=== PATIENT | male | born 1980 | race Caucasian/White ===

== ENCOUNTER 2017-04-14 16:03 | Inpatient (IN) | payer OTHER ==
[2017-04-14 17:22] VITALS: BMI 26.4
[2017-04-14] MEDS ORDERED: MAGNESIUM CITRATE 300 ML BOTTLE PO PRN (17:49)
[2017-04-14] MEDS ORDERED: LOPERAMIDE HCL 2 MG CAPSULE PO PRN (17:49)
[2017-04-14] MEDS ORDERED: P-EPHED 60MG/TRIPROLIDI 2.5MG TABLET PO PRN (17:49)
[2017-04-14] MEDS ORDERED: MENTHOL/PHENOL 1 EACH UD MM PRN (17:49)
[2017-04-14] MEDS ORDERED: guaiFENesin/D-METHORPHAN HB 10 ML UNIT-DOSE CUPS PO PRN (17:49)
[2017-04-14] MEDS ORDERED: NICOTINE POLACRILEX 2 MG GUM BC PRN (17:49)
[2017-04-14] MEDS ORDERED: NICOTINE POLACRILEX 4 MG GUM BC PRN (17:49)
[2017-04-14] MEDS ORDERED: ACETAMINOPHEN 325 MG TABLET (FP) PO PRN (17:49)
[2017-04-14] MEDS ORDERED: chlordiazePOXIDE HCL 25 MG CAPSULE PO PRN (17:49)
[2017-04-14] MEDS ORDERED: chlordiazePOXIDE HCL 25 MG CAPSULE PO ONE (17:49)
[2017-04-14] MEDS ORDERED: diphenhydrAMINE HCL 50 MG CAPSULE PO PRN (17:49)
[2017-04-14] MEDS ORDERED: METHADONE HCL 10 MG TABLET (FOR DETOX USE ONLY) PO ONE ×2 (17:49→23:00)
[2017-04-14] MEDS ORDERED: MAG HYDROX/AL HYDROX/SIMETH 30 ML UNIT-DOSE CUP PO PRN (17:49)
[2017-04-14] MEDS ORDERED: IBUPROFEN 400 MG TABLET (FP) PO PRN (17:49)
[2017-04-14] MEDS ORDERED: MAGNESIUM HYDROX 2400MG/30ML ORAL SUSPENSION 30 ML CUP PO PRN (17:49)
--- NOTE | 2017-04-14 17:49 | HP ---
COWS - Scale Resting Pulse: 2= [place] 101-120 Sweatin= Chills/Flushing Restless Observation: 1= Difficult to Sit Still Pupil Size: 1= Pupils >than Normal Bone or Joint Aches: 2= Severe Diffuse Aches Runny Nose/ Eye Tearin= Runny Nose/Eyes GI Upset > 30mins: 2= Nausea/Diarrhea Tremor Observation: 2= Slight Tremor Visible Yawning Observation: 1= 1-2x During Session Anxiety or Irritability: 2=Irritable/Anxious Goose Flesh Skin: 3=Piloerection COWS Score: 19 CIWA Score - CIWA Score Nausea/Vomitin-Int. Nausea w/Dry Heave Muscle Tremors: 4-Moderate,w/Arms Extend Anxiety: 4-Mod. Anxious/Guarded Agitation: 4-Moderately Restless Paroxysmal Sweats: 3 Orientation: 0-Oriented Tacttile Disturbances: 0-None Auditory Disturbances: 0-None Visual Disturbances: 0-None Headache: 3-Moderate CIWA-Ar Total Score: 22 Admission ROS BHS - HPI Chief Complaint: alcohol and heroin withdrawal sx, requesting inpateint detox Allergies/Adverse Reactions: Allergies Allergy/AdvReac Type Severity Reaction Status Date / Time Fish Containing Products Allergy Severe Swelling Verified 04/14/17 17:39 History of Present Illness: 36 yo m with h/o chronic alcoholism and opioid dependence, was admitted to [facility] 2007, last detox in [place] 1 year ago now requesting inpatient detox and rehab from alcohol and hoerin because of KIM and heorin withdrawl symptoms. PMHX Hep c+, depressopm, nicotine dependence <10/day no suicidal ideation or suicide attempts in the past. no h/o seizures, no DTs. h/o OD, h/o IDU - now sniffing only last used yesterday. Last drink yesterday. Exam Limitations: No Limitations - Ebola screening Have you traveled outside of the country in the last 21 days: No Have you had contact with anyone from an Ebola affected area: No Have you been sick,other than usual withdrawal symptoms: No Do you have a fever: No - Review of Systems Constitutional: Chills, Diaphoresis, Malaise, Night Sweats, Weakness, Unintentional Wgt. Loss EENT: reports: Nose Congestion Respiratory: reports: SOB with Exertion Cardiac: reports: No Symptoms Reported GI: reports: Constipated, Nausea, Poor Appetite, Poor Fluid Intake, Vomiting, Indigestion, Abdominal cramping : reports: No Symptoms Reported Musculoskeletal: reports: Back Pain, Joint Pain, Muscle Pain, Muscle Weakness, Neck Pain Integumentary: reports: Flushing, Sweating Neuro: reports: Headache, Numbness, Tremors, Weakness Endocrine: reports: No Symptoms Reported Hematology: reports: No Symptoms Reported Psychiatric: reports: Judgement Intact, Mood/Affect Appropiate, Orientated x3, Agitated, Anxious, Depressed Other Systems: Reviewed and Negative Patient History - Patient Medical History Hx Anemia: No Hx Asthma: No Hx Chronic Obstructive Pulmonary Disease (COPD): No Hx Cancer: No Hx Cardiac Disorders: No Hx Congestive Heart Failure: No Hx Hypertension: No Hx Hypercholesterolemia: Yes (not on medication) Hx Pacemaker: No HX Cerebrovascular Accident: No Hx Seizures: No Hx Diabetes: No Hx Gastrointestinal Disorders: No Hx Liver Disease: No Hx Genitourinary Disorders: No Hx Sexually Transmitted Disorders: No Hx Renal Disease (ESRD): No Hx Thyroid Disease: No Hx Human Immunodeficiency Virus (HIV): No Hx Hepatitis C: No Hx Depression: Yes Hx Suicide Attempt: No Hx Bipolar Disorder: No Hx Schizophrenia: No - Patient Surgical History Past Surgical History: Yes Hx Abdominal Surgery: Yes (liver biopsy) Anesthesia Reaction: No - PPD History Previous Implant?: Yes Documented Results: Negative w/o proof Implanted On Prior R Admission?: No PPD to be Administered?: Yes - Reproductive History Patient is a Female of Child Bearing Age (11 -55 yrs old): No Patient : No - Smoking Cessation Smoking history: Current every day smoker Have you smoked in the past 12 months: Yes Aproximately how many cigarettes per day: 6 Hx Chewing Tobacco Use: No Initiated information on smoking cessation: Yes 'Breaking Loose' booklet given: 04/14/17 - Substance & Tx. History Hx Alcohol Use: Yes Hx Substance Use: Yes Substance Use Type: Alcohol, Cocaine Hx Substance Use Treatment: Yes - Substances Abused Heroin Route: Inhalation Frequency: Daily Amount used: 2 bags Age of first use: 27 Date of Last Use: 04/13/17 Crack Route: Smoking Frequency: Daily Amount used: 4-5 bags Age of first use: 27 Date of Last Use: 04/13/17 Alcohol Route: Oral Frequency: Daily Amount used: 3-4 40 oz beers Age of first use: 12 Date of Last Use: 04/13/17 Alprazolam (Xanax) Route: Oral Frequency: 1-2 times per week Amount used: 4mg Age of first use: 31 Date of Last Use: 04/12/17 percocets Route: Oral Frequency: 3-6 times per week Amount used: 2-3 10mg pills Age of first use: 35 Date of Last Use: 04/11/17 Family Disease History - Family Disease History Family Disease History: Other: Father (alcoholism) Admission Physical Exam [facility] - Vital Signs Vital Signs: Vital Signs - 24 hr 04/14/17 17:20 Temperature 97.3 F L Pulse Rate 104 H Respiratory 20 Rate Blood Pressure 112/69 - Physical General Appearance: Yes: Nourished, Appropriately Dressed, Mild Distress, Thin, Tremorous, Irritable, Sweating, Anxious HEENTM: Yes: EOMI, Hearing grossly Normal, Normal ENT Inspection, Normocephalic , Normal Voice, COLIN, Pharynx Normal, Nasal Congestion, Rhinorrhea Respiratory: Yes: Within Normal Limits, Chest Non-Tender, Lungs Clear, Normal Breath Sounds, No Respiratory Distress, No Accessory Muscle Use Neck: Yes: Within Normal Limits, No masses,lesions,Nodules, Supple, Trachea in good position Breast: Yes: Breast Exam Deferred Cardiology: Yes: Within Normal Limits, Regular Rhythm, Regular Rate, S1, S2 Abdominal: Yes: Non Tender, Flat, Soft, Increased Bowel Sounds Genitourinary: Yes: Within Normal Limits Back: Yes: Normal Inspection, Muscle Spasm Musculoskeletal: Yes: full range of Motion, Gait Steady, Pelvis Stable, Back pain, Muscle Pain Extremities: Yes: Normal Capillary Refill, Normal Inspection, Normal Range of Motion, Non-Tender, Tremors, Other (old tracks both arms from injecting many years ago) Neurological: Yes: goggles assembler II-XII NML intact, Fully Oriented, Alert, Motor Strength 5/5, Normal Response, Depressed Affect Integumentary: Yes: Normal Color, Warm, Diaphoresis, Moist, Track Trevino (old, no longer injecting) Lymphatic: Yes: Within Normal Limits - Addiitonal Findings: withdrawal sx - Diagnostic (1) Opioid dependence with withdrawal Current Visit: Yes Status: Chronic (2) Alcohol dependence with uncomplicated withdrawal Current Visit: Yes Status: Chronic (3) Cocaine dependence, uncomplicated Current Visit: Yes Status: Chronic (4) Sedative, hypnotic or anxiolytic dependence with withdrawal, uncomplicated Current Visit: Yes Status: Chronic (5) Nicotine dependence Current Visit: Yes Status: Chronic Qualifiers: Nicotine product type: cigarettes (6) Hepatitis C Current Visit: Yes Status: Chronic (7) Depression Current Visit: Yes Status: Chronic Cleared for Admission S - Detox or Rehab [facility] Level of Care: Medically Managed Detox Regimen/Protocol: Methadone/Librium [facility] Breath Alcohol Content Breath Alcohol Content: 0 Urine Drug Screen - Results Drug Screen Negative: No Urine Drug Screen Results: JOSE ALBERTO-Cocaine, OPI-Opiates
[2017-04-14] MEDS ORDERED: ZOLPIDEM TARTRATE 10 MG TABLET (PARK CARE ONLY) PO PRN (17:52)
[2017-04-14] MEDS: NICOTINE 14 MG/24 HOURS TOPICAL PATCH TD SCH (19:51)
[2017-04-14] MEDS: THIAMINE HCL 100 MG TABLET (FP) PO SCH (22:01)
[2017-04-14] MEDS: chlordiazePOXIDE HCL 25 MG CAPSULE PO SCH (22:02)
[2017-04-14 22:24] LABS: URINE APPEARANCE CLEAR; URINE BILIRUBIN NEGATIVE (NEGATIVE); URINE BLOOD NEGATIVE (NEGATIVE); URINE COLOR YELLOW; URINE GLUCOSE (UA) NEGATIVE (NEGATIVE); URINE KETONE TRACE (NEGATIVE); URINE LEUK ESTERASE NEGATIVE (NEGATIVE); URINE NITRITE NEGATIVE (NEGATIVE); URINE PROTEIN NEGATIVE (NEGATIVE); URINE UROBILINOGEN NEGATIVE mg/dL (0.2-1.0)
[2017-04-15] MEDS: chlordiazePOXIDE HCL 25 MG CAPSULE PO SCH ×4 (05:23→22:08)
--- NOTE | 2017-04-15 08:51 | CONSULT ---
[facility] Psychiatric Consult - Data Date of interview: 04/15/17 Admission source: [facility] Identifying data: This is 36 years old nale with psychiatric hospitalization history, history of depression, iontosicated with: Alcohol, Cocaine, Opioids, Xanax amnd Nicotine Substance Abuse History: Smoking history: Current every day smoker. Have you smoked in the past 12 months: Yes. Aproximately how many cigarettes per day: 6. Hx Chewing Tobacco Use: No. Initiated information on smoking cessation: Yes. 'Breaking Loose' booklet given: 04/14/17. - Substance & Tx. History. Hx Alcohol Use: Yes. Hx Substance Use: Yes. Substance Use Type: Alcohol, Cocaine. Hx Substance Use Treatment: Yes. - Substances Abused. Heroin. Route: Inhalation. Frequency: Daily. Amount used: 2 bags. Age of first use: 27. Date of Last Use: 04/13/17. Crack. Route: Smoking. Frequency: Daily. Amount used: 4-5 bags. Age of first use: 27. Date of Last Use: 04/13/17. * * Alcohol. Route: Oral. Frequency: Daily. Amount used: 3-4 40 oz beers. Age of first use: 12. Date of Last Use: 04/13/17. Alprazolam (Xanax). Route: Oral. Frequency: 1-2 times per week. Amount used: 4mg. Age of first use: 31. Date of Last Use: 04/12/17. percocets. Route: Oral. Frequency: 3-6 times per week. Amount used: 2-3 10mg pills. Age of first use: 35. Date of Last Use: 04/11/17 Medical History: HepC+ Psychiatric History: Patioent reports history of depression with unclear psychiatric hospitalization on about more then 5 years ago, reports taking prior to admission: Abilify 10mg poqd. Ambien 10mg po qhs. Denies suicidal history Physical/Sexual Abuse/Trauma History: Denies Additional Comment: Abilify 10mg poqd. Ambien 10mg po qhs Psychiatric Findings - Problem List ([place] 1, 2,3) (1) Alcohol dependence with uncomplicated withdrawal Current Visit: Yes Status: Chronic (2) Cocaine dependence, uncomplicated Current Visit: Yes Status: Chronic (3) Nicotine dependence Current Visit: Yes Status: Chronic Qualifiers: Nicotine product type: cigarettes (4) Opioid dependence with withdrawal Current Visit: Yes Status: Chronic (5) Sedative, hypnotic or anxiolytic dependence with withdrawal, uncomplicated Current Visit: Yes Status: Chronic (6) Drug-induced mood disorder Current Visit: Yes Status: Acute - Initial Treatment Plan Initial Treatment Plan: Abilify 10mg poqd. Ambien 10mg po qhs
[2017-04-15 09:56] LABS: MCH 31.3 pg (25.7-33.7); MCHC 33.3 g/dl (32.0-35.9); MEAN PLT VOLUME 8.6 fl (7.5-11.1); PLATELET COUNT 202 K/MM3 (134-434); RDW 12.5 % (11.9-15.9); WHITE BLOOD COUNT 8.9 K/mm3 (4.0-10.0)
[2017-04-15] MEDS ORDERED: METHADONE HCL 10 MG TABLET (FOR DETOX USE ONLY) PO SCH (10:00)
[2017-04-15] MEDS: PRENATAL VITAMINS W/ FOLIC ACID TABLET (FP) PO SCH (10:07)
[2017-04-15] MEDS: ARIPiprazole 10 MG TABLET PO SCH (10:07)
[2017-04-15] MEDS: NICOTINE 14 MG/24 HOURS TOPICAL PATCH TD SCH (10:08)
--- NOTE | 2017-04-15 10:09 | PN ---
S CIWA - CIWA Score Nausea/Vomitin Muscle Tremors: 4-Moderate,w/Arms Extend Anxiety: 4-Mod. Anxious/Guarded Agitation: 4-Moderately Restless Paroxysmal Sweats: 3 Orientation: 0-Oriented Tacttile Disturbances: 0-None Auditory Disturbances: 0-None Visual Disturbances: 0-None Headache: 0-None Present CIWA-Ar Total Score: 18 BHS COWS - Scale Resting Pulse: 1= [place] 81-100 Sweatin= Chills/Flushing Restless Observation: 1= Difficult to Sit Still Pupil Size: 1= Pupils >than Normal Bone or Joint Aches: 1= Mild Discomfort Runny Nose/ Eye Tearin= Nasal Congestion GI Upset > 30mins: 2= Nausea/Diarrhea Tremor Observation of Outstretched Hands: 2= Slight Tremor Visible Yawning Observation: 1= 1-2x During Session Anxiety or Irritability: 2=Irritable/Anxious Goose Flesh Skin: 3=Piloerection COWS Score: 16 BHS Progress Note (SOAP) Subjective: nausea, sweats, interrupted sleep, anxiety, tremors Objective: 04/15/17 10:08 Vital Signs - 24 hr 04/14/17 04/14/17 04/15/17 17:20 21:17 00:30 Temperature 97.3 F L 98.8 F Pulse Rate 104 H 100 H Respiratory 20 20 18 Rate Blood Pressure 112/69 127/71 04/15/17 04/15/17 03:30 05:53 Temperature 97.2 F L Pulse Rate 75 Respiratory 18 16 Rate Blood Pressure 92/58 Laboratory Tests 04/14/17 04/15/17 21:57 07:00 WBC 8.9 RBC 4.42 Hgb 13.8 Hct 41.6 MCV 94.0 MCH 31.3 MCHC 33.3 RDW 12.5 Plt Count 202 MPV 8.6 Urine Color Yellow Urine Appearance Clear Urine pH 6.0 Ur Specific [place] 1.025 Urine Protein Negative Urine Glucose (UA) Negative Urine Ketones Trace H Urine Blood Negative Urine Nitrite Negative Urine Bilirubin Negative Urine Urobilinogen Negative Ur Leukocyte Esterase Negative labs pending Assessment: 04/15/17 10:08 withdrawal sx Plan: cont detox, fluids, check labs
--- NOTE | 2017-04-15 10:45 | EKG ---
Test Reason : Blood Pressure : / mmHG Vent. Rate : 087 BPM Atrial Rate : 087 BPM P-R Int : 148 ms QRS Dur : 094 ms QT Int : 356 ms P-R-T Axes : 028 051 027 degrees QTc Int : 428 ms NORMAL SINUS RHYTHM NORMAL ECG NO PREVIOUS ECGS AVAILABLE Confirmed by BREN DISLA, LUCILA ([id number]) on 04/15/2017 10:45:00 AM Referred By: Bereket Graves Confirmed By:LUCILA CORREIA MD
[2017-04-15 10:46] LABS: ALBUMIN 3.3 g/dl (3.4-5.0); ANION GAP 8 (8-16); CALCIUM 8.7 mg/dL (8.5-10.1); CO2 30 mmol/L (21-32); GLUCOSE,RANDOM 149 mg/dL (74-106)
[2017-04-15 10:50] LABS: ALK PHOS 96 U/L (45-117); BILIRUBIN,TOTAL 0.4 mg/dL (0.2-1.0); CREATININE 1.1 mg/dL (0.7-1.3); SGOT/AST 6 U/L (15-37); SGPT/ALT 15 U/L (12-78); TOT PROT 5.9 g/dl (6.4-8.2)
[2017-04-15 14:37] LABS: SICKLE CELL SCREEN NEGATIVE (NEGATIVE)
[2017-04-15] MEDS: CYCLOBENZAPRINE HCL 10 MG TABLET (FP) PO SCH ×2 (15:10→22:07)
[2017-04-15] MEDS ORDERED: ONDANSETRON *ODT* 4 MG TABLET SL ONE (17:45)
[2017-04-15] MEDS: THIAMINE HCL 100 MG TABLET (FP) PO SCH (22:06)
[2017-04-15] MEDS: cloNIDine HCL 0.1 MG TABLET PO SCH (22:07)
[2017-04-15] MEDS: ZOLPIDEM TARTRATE 10 MG TABLET (PARK CARE ONLY) PO PRN (22:07)
[2017-04-15] MEDS: NAPROXEN 500 MG TABLET (FP) PO SCH (22:07)
[2017-04-16] MEDS: chlordiazePOXIDE HCL 25 MG CAPSULE PO SCH ×3 (05:39→17:49)
[2017-04-16] MEDS: CYCLOBENZAPRINE HCL 10 MG TABLET (FP) PO SCH ×3 (05:39→22:10)
[2017-04-16] MEDS ORDERED: TRIMETHOBENZAMIDE HCL 300 MG CAPSULE PO PRN (09:56)
[2017-04-16] MEDS ORDERED: TRIMETHOBENZAMIDE HCL 300 MG CAPSULE PO ONE (10:15)
[2017-04-16] MEDS: NAPROXEN 500 MG TABLET (FP) PO SCH ×2 (10:57→22:11)
[2017-04-16] MEDS: cloNIDine HCL 0.1 MG TABLET PO SCH ×2 (10:57→22:11)
[2017-04-16] MEDS: PANTOPRAZOLE 40 MG TABLET (FP) PO SCH (10:57)
[2017-04-16] MEDS: PRENATAL VITAMINS W/ FOLIC ACID TABLET (FP) PO SCH (10:57)
[2017-04-16] MEDS: METHADONE HCL 5 MG TABLET (FOR DETOX USE ONLY) PO SCH (10:58)
[2017-04-16] MEDS: ARIPiprazole 10 MG TABLET PO SCH (10:58)
[2017-04-16] MEDS: NICOTINE 14 MG/24 HOURS TOPICAL PATCH TD SCH (11:47)
[2017-04-16] MEDS: hydrOXYzine PAMOATE 50 MG CAPSULE (FP) PO PRN (11:48)
--- NOTE | 2017-04-16 13:01 | PN ---
[facility] CIWA - CIWA Score Nausea/Vomitin-No Nausea/No Vomiting Muscle Tremors: 4-Moderate,w/Arms Extend Anxiety: 4-Mod. Anxious/Guarded Agitation: 4-Moderately Restless Paroxysmal Sweats: 3 Orientation: 0-Oriented Tacttile Disturbances: 0-None Auditory Disturbances: 0-None Visual Disturbances: 0-None Headache: 0-None Present CIWA-Ar Total Score: 15 BHS COWS - Scale Resting Pulse: 1= [place] 81-100 Sweatin=Flushed/Facial Moisture Restless Observation: 1= Difficult to Sit Still Pupil Size: 0= Normal to Room Light Bone or Joint Aches: 2= Severe Diffuse Aches Runny Nose/ Eye Tearin= Runny Nose/Eyes GI Upset > 30mins: 1= Stomach Cramp Tremor Observation of Outstretched Hands: 2= Slight Tremor Visible Yawning Observation: 1= 1-2x During Session Anxiety or Irritability: 2=Irritable/Anxious Goose Flesh Skin: 0=Smooth Skin COWS Score: 14 S Progress Note (SOAP) Subjective: irritable agitation anxiety sweats interrupted sleep headache Objective: 04/16/17 13:00 Vital Signs Temperature 98.1 F 04/16/17 10:04 Pulse Rate 84 04/16/17 10:04 Respiratory Rate 16 04/16/17 10:04 Blood Pressure 113/69 04/16/17 10:04 O2 Sat by Pulse Oximetry (%) Laboratory Tests 04/14/17 04/15/17 04/15/17 21:57 07:00 07:00 WBC 8.9 RBC 4.42 Hgb 13.8 Hct 41.6 MCV 94.0 MCH 31.3 MCHC 33.3 RDW 12.5 Plt Count 202 MPV 8.6 Sickle Cell Screen Negative Sodium 141 Potassium 4.0 Chloride 103 Carbon Dioxide 30 Anion Gap 8 BUN 11 Creatinine 1.1 Creat Clearance w eGFR > 60 Random Glucose 149 H Calcium 8.7 Total Bilirubin 0.4 AST 6 L ALT 15 Alkaline Phosphatase 96 Total Protein 5.9 L Albumin 3.3 L Urine Color Yellow Urine Appearance Clear Urine pH 6.0 Ur Specific [place] 1.025 Urine Protein Negative Urine Glucose (UA) Negative Urine Ketones Trace H Urine Blood Negative Urine Nitrite Negative Urine Bilirubin Negative Urine Urobilinogen Negative Ur Leukocyte Esterase Negative RPR Titer 04/15/17 07:00 WBC RBC Hgb Hct MCV MCH MCHC RDW Plt Count MPV Sickle Cell Screen Sodium Potassium Chloride Carbon Dioxide Anion Gap BUN Creatinine Creat Clearance w eGFR Random Glucose Calcium Total Bilirubin AST ALT Alkaline Phosphatase Total Protein Albumin Urine Color Urine Appearance Urine pH Ur Specific [place] Urine Protein Urine Glucose (UA) Urine Ketones Urine Blood Urine Nitrite Urine Bilirubin Urine Urobilinogen Ur Leukocyte Esterase RPR Titer Nonreactive awake/alert ambulating no acute distress Assessment: 04/16/17 13:01 withdrawal sx Plan: continue detox increase fluids
[2017-04-16] MEDS: THIAMINE HCL 100 MG TABLET (FP) PO SCH (22:11)
[2017-04-16] MEDS: chlordiazePOXIDE 5 MG CAPSULE PO SCH (22:11)
[2017-04-16] MEDS: ZOLPIDEM TARTRATE 10 MG TABLET (PARK CARE ONLY) PO PRN (23:13)
[2017-04-17] MEDS: chlordiazePOXIDE 5 MG CAPSULE PO SCH ×3 (05:35→18:20)
[2017-04-17] MEDS: CYCLOBENZAPRINE HCL 10 MG TABLET (FP) PO SCH ×3 (07:19→21:59)
[2017-04-17] MEDS: PANTOPRAZOLE 40 MG TABLET (FP) PO SCH (10:19)
[2017-04-17] MEDS: PRENATAL VITAMINS W/ FOLIC ACID TABLET (FP) PO SCH (10:20)
[2017-04-17] MEDS: cloNIDine HCL 0.1 MG TABLET PO SCH ×2 (10:20→21:59)
[2017-04-17] MEDS: hydrOXYzine PAMOATE 50 MG CAPSULE (FP) PO PRN (10:20)
[2017-04-17] MEDS: METHADONE HCL 5 MG TABLET (FOR DETOX USE ONLY) PO SCH (10:20)
[2017-04-17] MEDS: NAPROXEN 500 MG TABLET (FP) PO SCH ×2 (10:20→21:59)
[2017-04-17] MEDS: ARIPiprazole 10 MG TABLET PO SCH (10:20)
[2017-04-17] MEDS: NICOTINE 14 MG/24 HOURS TOPICAL PATCH TD SCH (10:21)
--- NOTE | 2017-04-17 10:42 | PN ---
S Progress Note (SOAP) Subjective: ALERT,IRRITABLE,ANXIOUS,INTERRUPTED SLEEP,PAIN IN THE BODY Objective: 04/17/17 10:41 Vital Signs Temperature 98.1 F 04/17/17 10:00 Pulse Rate 86 04/17/17 10:00 Respiratory Rate 18 04/17/17 10:00 Blood Pressure 125/68 04/17/17 10:00 O2 Sat by Pulse Oximetry (%) Assessment: 04/17/17 10:42 WITHDRAWAL SYMPTOM Plan: CONTINUE DETOX,
[2017-04-17] MEDS: ZOLPIDEM TARTRATE 10 MG TABLET (PARK CARE ONLY) PO PRN (21:59)
[2017-04-17] MEDS: THIAMINE HCL 100 MG TABLET (FP) PO SCH (21:59)
[2017-04-17] MEDS: chlordiazePOXIDE HCL 10 MG CAPSULE PO SCH (21:59)
[2017-04-18] MEDS: CYCLOBENZAPRINE HCL 10 MG TABLET (FP) PO SCH ×3 (05:35→23:07)
[2017-04-18] MEDS: chlordiazePOXIDE HCL 10 MG CAPSULE PO SCH ×3 (05:35→18:19)
[2017-04-18] MEDS ORDERED: METHADONE HCL 10 MG TABLET (FOR DETOX USE ONLY) PO SCH (10:00)
[2017-04-18] MEDS: cloNIDine HCL 0.1 MG TABLET PO SCH ×2 (10:47→23:07)
[2017-04-18] MEDS: PRENATAL VITAMINS W/ FOLIC ACID TABLET (FP) PO SCH (10:47)
[2017-04-18] MEDS: NAPROXEN 500 MG TABLET (FP) PO SCH ×2 (10:47→23:07)
[2017-04-18] MEDS: NICOTINE 14 MG/24 HOURS TOPICAL PATCH TD SCH (10:47)
[2017-04-18] MEDS: PANTOPRAZOLE 40 MG TABLET (FP) PO SCH (10:47)
[2017-04-18] MEDS: ARIPiprazole 10 MG TABLET PO SCH (10:48)
--- NOTE | 2017-04-18 11:31 | PN ---
S Progress Note (SOAP) Subjective: shakes, sweats,diarrhea, back pain Objective: 04/18/17 11:31 Vital Signs - 8 hr 04/18/17 04/18/17 06:43 10:00 Temperature 97.9 F 98.1 F Pulse Rate 70 73 Respiratory 18 18 Rate Blood Pressure 112/66 109/70 Laboratory Last Values WBC 8.9 K/mm3 (4.0-10.0) 04/15/17 07:00 RBC 4.42 M/mm3 (4.00-5.60) 04/15/17 07:00 Hgb 13.8 GM/dL (11.7-16.9) 04/15/17 07:00 Hct 41.6 % (35.4-49) 04/15/17 07:00 MCV 94.0 fl (80-96) 04/15/17 07:00 MCH 31.3 pg (25.7-33.7) 04/15/17 07:00 MCHC 33.3 g/dl (32.0-35.9) 04/15/17 07:00 RDW 12.5 % (11.9-15.9) 04/15/17 07:00 Plt Count 202 K/MM3 (134-434) 04/15/17 07:00 MPV 8.6 fl (7.5-11.1) 04/15/17 07:00 Sickle Cell Screen Negative (NEGATIVE) 04/15/17 07:00 Sodium 141 mmol/L (136-145) 04/15/17 07:00 Potassium 4.0 mmol/L (3.5-5.1) 04/15/17 07:00 Chloride 103 mmol/L (98-107) 04/15/17 07:00 Carbon Dioxide 30 mmol/L (21-32) 04/15/17 07:00 Anion Gap 8 (8-16) 04/15/17 07:00 BUN 11 mg/dL (7-18) 04/15/17 07:00 Creatinine 1.1 mg/dL (0.7-1.3) 04/15/17 07:00 Creat Clearance w eGFR > 60 (>60) 04/15/17 07:00 Random Glucose 149 mg/dL (74-106) H 04/15/17 07:00 Calcium 8.7 mg/dL (8.5-10.1) 04/15/17 07:00 Total Bilirubin 0.4 mg/dL (0.2-1.0) 04/15/17 07:00 AST 6 U/L (15-37) L 04/15/17 07:00 ALT 15 U/L (12-78) 04/15/17 07:00 Alkaline Phosphatase 96 U/L (45-117) 04/15/17 07:00 Total Protein 5.9 g/dl (6.4-8.2) L 04/15/17 07:00 Albumin 3.3 g/dl (3.4-5.0) L 04/15/17 07:00 Urine Color Yellow 04/14/17 21:57 Urine Appearance Clear 04/14/17 21:57 Urine pH 6.0 (5.0-8.0) 04/14/17 21:57 Ur Specific [place] 1.025 (1.005-1.025) 04/14/17 21:57 Urine Protein Negative (NEGATIVE) 04/14/17 21:57 Urine Glucose (UA) Negative (NEGATIVE) 04/14/17 21:57 Urine Ketones Trace (NEGATIVE) H 04/14/17 21:57 Urine Blood Negative (NEGATIVE) 04/14/17 21:57 Urine Nitrite Negative (NEGATIVE) 04/14/17 21:57 Urine Bilirubin Negative (NEGATIVE) 04/14/17 21:57 Urine Urobilinogen Negative mg/dL (0.2-1.0) 04/14/17 21:57 Ur Leukocyte Esterase Negative (NEGATIVE) 04/14/17 21:57 RPR Titer Nonreactive (NONREACTIVE) 04/15/17 07:00 labs noted Assessment: 04/18/17 11:31 withdrawal sx Plan: continue detox
[2017-04-18] MEDS: THIAMINE HCL 100 MG TABLET (FP) PO SCH (23:13)
[2017-04-19] MEDS ORDERED: METHADONE HCL 5 MG TABLET (FOR DETOX USE ONLY) PO SCH (06:00)
[2017-04-19] MEDS: CYCLOBENZAPRINE HCL 10 MG TABLET (FP) PO SCH (06:18)
--- NOTE | 2017-04-19 10:09 | PN ---
[facility] Progress Note Note: Pt. completed detox and was schedule to go home. However he became psychotic with auditory hallucinations, he accuses staff of trying to hurt him. Vital Signs - 8 hr 04/19/17 04/19/17 03:30 06:35 Temperature 97.4 F L Pulse Rate 86 Respiratory 18 16 Rate Blood Pressure 102/52 Laboratory Last Values WBC 8.9 K/mm3 (4.0-10.0) 04/15/17 07:00 RBC 4.42 M/mm3 (4.00-5.60) 04/15/17 07:00 Hgb 13.8 GM/dL (11.7-16.9) 04/15/17 07:00 Hct 41.6 % (35.4-49) 04/15/17 07:00 MCV 94.0 fl (80-96) 04/15/17 07:00 MCH 31.3 pg (25.7-33.7) 04/15/17 07:00 MCHC 33.3 g/dl (32.0-35.9) 04/15/17 07:00 RDW 12.5 % (11.9-15.9) 04/15/17 07:00 Plt Count 202 K/MM3 (134-434) 04/15/17 07:00 MPV 8.6 fl (7.5-11.1) 04/15/17 07:00 Sickle Cell Screen Negative (NEGATIVE) 04/15/17 07:00 Sodium 141 mmol/L (136-145) 04/15/17 07:00 Potassium 4.0 mmol/L (3.5-5.1) 04/15/17 07:00 Chloride 103 mmol/L (98-107) 04/15/17 07:00 Carbon Dioxide 30 mmol/L (21-32) 04/15/17 07:00 Anion Gap 8 (8-16) 04/15/17 07:00 BUN 11 mg/dL (7-18) 04/15/17 07:00 Creatinine 1.1 mg/dL (0.7-1.3) 04/15/17 07:00 Creat Clearance w eGFR > 60 (>60) 04/15/17 07:00 Random Glucose 149 mg/dL (74-106) H 04/15/17 07:00 Calcium 8.7 mg/dL (8.5-10.1) 04/15/17 07:00 Total Bilirubin 0.4 mg/dL (0.2-1.0) 04/15/17 07:00 AST 6 U/L (15-37) L 04/15/17 07:00 ALT 15 U/L (12-78) 04/15/17 07:00 Alkaline Phosphatase 96 U/L (45-117) 04/15/17 07:00 Ammonia 32.44 umol/L (11-32) H 04/18/17 15:00 Total Protein 5.9 g/dl (6.4-8.2) L 04/15/17 07:00 Albumin 3.3 g/dl (3.4-5.0) L 04/15/17 07:00 Urine Color Yellow 04/14/17 21:57 Urine Appearance Clear 04/14/17 21:57 Urine pH 6.0 (5.0-8.0) 04/14/17 21:57 Ur Specific [place] 1.025 (1.005-1.025) 04/14/17 21:57 Urine Protein Negative (NEGATIVE) 04/14/17 21:57 Urine Glucose (UA) Negative (NEGATIVE) 04/14/17 21:57 Urine Ketones Trace (NEGATIVE) H 04/14/17 21:57 Urine Blood Negative (NEGATIVE) 04/14/17 21:57 Urine Nitrite Negative (NEGATIVE) 04/14/17 21:57 Urine Bilirubin Negative (NEGATIVE) 04/14/17 21:57 Urine Urobilinogen Negative mg/dL (0.2-1.0) 04/14/17 21:57 Ur Leukocyte Esterase Negative (NEGATIVE) 04/14/17 21:57 RPR Titer Nonreactive (NONREACTIVE) 04/15/17 07:00 Ammonia level upper limit of normal. Dx. : Acute Psychosis P : Call 911 for safe transfer to [facility]
[2017-04-19 10:38] VITALS: BP 119/69; PULSE 87; TEMP 98.1
--- NOTE | 2017-04-19 12:24 | DS ---
[facility] Detox Discharge Summary Admission Date: 04/14/17 Discharge Date: 04/19/17 - History Present History: Alcohol Dependence, Cocaine Dependence, Opioid Dependence, Sedative Dependence Pertinent Past History: Hep C - Physical Exam Results Vital Signs: Vital Signs Temperature 98.1 F 04/19/17 10:00 Pulse Rate 87 04/19/17 10:00 Respiratory Rate 18 04/19/17 10:00 Blood Pressure 119/69 04/19/17 10:00 O2 Sat by Pulse Oximetry (%) Pertinent Admission Physical Exam Findings: Withdrawal sx. Laboratory Last Values WBC 8.9 K/mm3 (4.0-10.0) 04/15/17 07:00 RBC 4.42 M/mm3 (4.00-5.60) 04/15/17 07:00 Hgb 13.8 GM/dL (11.7-16.9) 04/15/17 07:00 Hct 41.6 % (35.4-49) 04/15/17 07:00 MCV 94.0 fl (80-96) 04/15/17 07:00 MCH 31.3 pg (25.7-33.7) 04/15/17 07:00 MCHC 33.3 g/dl (32.0-35.9) 04/15/17 07:00 RDW 12.5 % (11.9-15.9) 04/15/17 07:00 Plt Count 202 K/MM3 (134-434) 04/15/17 07:00 MPV 8.6 fl (7.5-11.1) 04/15/17 07:00 Sickle Cell Screen Negative (NEGATIVE) 04/15/17 07:00 Sodium 141 mmol/L (136-145) 04/15/17 07:00 Potassium 4.0 mmol/L (3.5-5.1) 04/15/17 07:00 Chloride 103 mmol/L (98-107) 04/15/17 07:00 Carbon Dioxide 30 mmol/L (21-32) 04/15/17 07:00 Anion Gap 8 (8-16) 04/15/17 07:00 BUN 11 mg/dL (7-18) 04/15/17 07:00 Creatinine 1.1 mg/dL (0.7-1.3) 04/15/17 07:00 Creat Clearance w eGFR > 60 (>60) 04/15/17 07:00 Random Glucose 149 mg/dL (74-106) H 04/15/17 07:00 Calcium 8.7 mg/dL (8.5-10.1) 04/15/17 07:00 Total Bilirubin 0.4 mg/dL (0.2-1.0) 04/15/17 07:00 AST 6 U/L (15-37) L 04/15/17 07:00 ALT 15 U/L (12-78) 04/15/17 07:00 Alkaline Phosphatase 96 U/L (45-117) 04/15/17 07:00 Ammonia 32.44 umol/L (11-32) H 04/18/17 15:00 Total Protein 5.9 g/dl (6.4-8.2) L 04/15/17 07:00 Albumin 3.3 g/dl (3.4-5.0) L 04/15/17 07:00 Urine Color Yellow 04/14/17 21:57 Urine Appearance Clear 04/14/17 21:57 Urine pH 6.0 (5.0-8.0) 04/14/17 21:57 Ur Specific [place] 1.025 (1.005-1.025) 04/14/17 21:57 Urine Protein Negative (NEGATIVE) 04/14/17 21:57 Urine Glucose (UA) Negative (NEGATIVE) 04/14/17 21:57 Urine Ketones Trace (NEGATIVE) H 04/14/17 21:57 Urine Blood Negative (NEGATIVE) 04/14/17 21:57 Urine Nitrite Negative (NEGATIVE) 04/14/17 21:57 Urine Bilirubin Negative (NEGATIVE) 04/14/17 21:57 Urine Urobilinogen Negative mg/dL (0.2-1.0) 04/14/17 21:57 Ur Leukocyte Esterase Negative (NEGATIVE) 04/14/17 21:57 RPR Titer Nonreactive (NONREACTIVE) 04/15/17 07:00 labs noted - Treatment Hospital Course: Detox Protocol Followed, Detoxed Safely, Responded well, Discharged Condition Good, Rehab Referral Accepted Patient has Accepted a Rehab Referral to: pt. was transferred to Psych ED at [facility] for acute Psychosis - Medication Discharge Medications: Ambulatory Orders Aripiprazole [Abilify -] 10 mg PO DAILY #30 tablet 04/15/17 - Diagnosis (1) Alcohol dependence with uncomplicated withdrawal Current Visit: Yes Status: Chronic (2) Cocaine dependence, uncomplicated Current Visit: Yes Status: Chronic (3) Hepatitis C Current Visit: Yes Status: Chronic Qualifiers: Viral hepatitis chronicity: chronic Hepatic coma status: without hepatic coma Qualified Code(s): B18.2 - Chronic viral hepatitis C (4) Nicotine dependence Current Visit: Yes Status: Chronic Qualifiers: Nicotine product type: cigarettes (5) Opioid dependence with withdrawal Current Visit: Yes Status: Chronic (6) Sedative, hypnotic or anxiolytic dependence with withdrawal, uncomplicated Current Visit: Yes Status: Chronic (7) Acute psychosis Current Visit: Yes Status: Acute - AMA Did Patient Leave Against Medical Advice: No
== END 2017-04-19 09:37 | disposition short-term general hospital (02) | DRG 897 ==
LOC: YASAS 16:03 → Y6N 19:05
PROVIDERS: ADMIT Internal Medicine Addiction Medicine; ATTEND Internal Medicine Addiction Medicine
PROC: HZ2ZZZZ Detoxification Services for Substance Abuse Treatment (ICD-10-PCS; principal; 2017-04-14)
DX: F19.230 Other psychoactive substance dependence with withdrawal, uncomplicated (principal); F14.20 Cocaine dependence, uncomplicated; F23 Brief psychotic disorder; F11.23 Opioid dependence with withdrawal; F13.230 Sedative, hypnotic or anxiolytic dependence with withdrawal, uncomplicated; F10.230 Alcohol dependence with withdrawal, uncomplicated; F17.210 Nicotine dependence, cigarettes, uncomplicated; B18.2 Chronic viral hepatitis C; Z91.013 Allergy to seafood
CPT/HCPCS: 36415; 80053; 81003; 82140; 85027; 85660; 86593; 93005; 93010